=== PATIENT | female | born 1985 | race Two or more races ===

== ENCOUNTER 2020-05-12 18:37 | Emergency (ER) | payer MEDICAID ==
[~2020-05-12] VITALS: Ht 165.1 cm; Wt 63.5 kg
[~2020-05-12 18:37] MED LIST: LEVO500T21 PO
[2020-05-12 18:38] VITALS: BP 124/67
[2020-05-12] MEDS ORDERED: NEOMYCIN-BACITRACIN-POLYM UNITDOSE PKG TOP OINT TOP ONE (19:30)
== END 2020-05-12 19:46 | disposition home or self-care (01) ==
LOC: EDBD 18:37 → ER 18:41
DX: S50.812A Abrasion of left forearm, initial encounter (principal); F10.920 Alcohol use, unspecified with intoxication, uncomplicated; V49.9XXA Car occupant (driver) (passenger) injured in unspecified traffic accident, initial encounter; Y93.89 Activity, other specified; Y92.89 Other specified places as the place of occurrence of the external cause; Y99.8 Other external cause status

== ENCOUNTER 2021-01-11 06:59 | Emergency (ER) | payer MEDICAID ==
[~2021-01-11] VITALS: Ht 160 cm; Wt 59.0 kg
[~2021-01-11 06:59] MED LIST changes: -LEVO500T21 PO; +LEVO500T31 PO
[2021-01-11] MEDS ORDERED: SODIUM CHLORIDE 0.9% 1,000 ML IV ONE ×2 (07:45→08:45)
[2021-01-11 08:03] LABS: Basophils # (auto) 0.1 10 ^3/uL (0-0.2); Eosinophils # (auto) 0 10 ^3/uL (0-0.8); Eosinophils % (auto) 0.1 % (0.0-7.0); Hematocrit 42.9 % (36.0-46.0); Hemoglobin 14.4 g/dL (12.2-16.2); Lymphocytes # (auto) 1.3 10 ^3/uL (0.4-5.4); Mean Corpuscular Hemoglobin 32.9 pg (28.0-32.0); Mean Corpuscular Hgb Conc. 33.6 g/dL (32.0-36.0); Mean Corpuscular Volume 97.9 fL (80.0-100.0); Monocytes # (auto) 0.5 10 ^3/uL (0-1.3); Monocytes % (auto) 8.3 % (0.0-12.0); Neutrophils # (auto) 4.5 10 ^3/uL (1.6-8.6); Neutrophils % (auto) 70.6 % (37.0-80.0); Nucleated Red Blood Cells % 0.1 %; Platelet Count (auto) 134 10^3/uL (140-450); Red Blood Cells 4.38 10^6/uL (4.0-5.20); Red Cell Distribution Width 17.7 % (11.8-14.3); White Blood Cell 6.4 10^3/uL (4.4-10.8)
[2021-01-11 08:10] LABS: Albumin 3.4 g/dL (3.4-5.0); Calcium 8.1 mg/dL (8.5-10.1); Magnesium 1.7 mg/dL (1.6-2.6); Potassium 3.9 mmol/L (3.5-5.1)
[2021-01-11 08:13] LABS: Urine Bacteria FEW /hpf (None Seen); Urine Blood 2+ /uL (Negative); Urine Mucus FEW (None Seen); Urine Specific Gravity 1.021 (1.001-1.035); Urine WBC 40 /hpf (0 - 5)
[2021-01-11 08:14] LABS: BUN/Creatinine Ratio 6.3; Bilirubin, Direct 0.6 mg/dL (0-0.2); Bilirubin, Total 0.9 mg/dL (0.2-1.0); Total Protein 8.4 g/dL (6.4-8.2)
[2021-01-11 08:33] LABS: Amphetamine Screen, Urine NEGATIVE (NEGATIVE); Barbiturate Scree,Urine NEGATIVE (NEGATIVE); Benzodiazephine Screen, Urine POSITIVE (NEGATIVE); Cannabinoid Screen, Urine NEGATIVE (NEGATIVE); Cocaine Screen, Urine NEGATIVE (NEGATIVE); Opiate Scree,Urine NEGATIVE (NEGATIVE); Phencyclidine Screen, Urine NEGATIVE (NEGATIVE)
[2021-01-11] MEDS ORDERED: SODIUM CHLORIDE 0.9% 1,000 ML IVB ONE (08:45)
[2021-01-11] MEDS ORDERED: DONNATAL 5ml ORAL Elix (BELLADONNA ALK-PHENOBARB) PO ONE (08:45)
[2021-01-11] MEDS ORDERED: LORazepam 2MG/ML-1ML VIAL IV ONE ×2 (08:45→13:00)
[2021-01-11] MEDS ORDERED: ONDANSETRON HCL 4 MG/2 ML VIAL IV ONE (08:45)
[2021-01-11] MEDS ORDERED: FAMOTIDINE 20 MG TAB PO ONE (08:45)
[2021-01-11] MEDS ORDERED: ALUM & MAG HYDROX-SIMETH LIQ(MAALOX) 30 ML PO ONE (08:45)
[2021-01-11 09:32] LABS: Beta HCG, Quantitative < 1 mlU/mL (1-3); Thyroid Stimulating Hormone 1.88 uIU/mL (0.358-3.74)
[2021-01-11 10:47] LABS: INR 1.35 (0.9-1.15); Partial Thromboplastin Time 29.5 sec (23.0-31.2)
[2021-01-11] MEDS ORDERED: cefTRIAXone 1GM/50ML D5W 50 ML IV ONE (11:00)
[2021-01-11] MEDS ORDERED: FOLIC ACID 1 MG, MULTIPLE VITAMIN 10 ML, MAGNESIUM SULF SDV 50% 8 MEQ, THIAMINE INJ 100... INJ SCH ×5 (12:00)
[2021-01-11 16:54] VITALS: BP 104/69
== END 2021-01-11 17:47 | disposition home or self-care (01) ==
LOC: ER 06:59
DX: F10.239 Alcohol dependence with withdrawal, unspecified (principal); N39.0 Urinary tract infection, site not specified; F17.210 Nicotine dependence, cigarettes, uncomplicated; F15.10 Other stimulant abuse, uncomplicated; F14.10 Cocaine abuse, uncomplicated; Z98.51 Tubal ligation status; Z32.02 Encounter for pregnancy test, result negative; Y90.8 Blood alcohol level of 240 mg/100 ml or more
CPT/HCPCS: 36415; 80053; 80076; 80307; 81001; 83690; 83735; 84443; 84702; 85025; 85610; 85730; 96361; 96365; 96367; 96375; 96376; 99285; J0696; J2060; J2405; J3411; J3475; J7030

== ENCOUNTER 2021-01-18 18:24 | Emergency (ER) | payer MEDICAID ==
[~2021-01-18] VITALS: Ht 172.7 cm; Wt 68.0 kg
[2021-01-18] MEDS ORDERED: LORazepam 2MG/ML-1ML VIAL IM ONE (18:45)
[2021-01-18] MEDS ORDERED: SODIUM CHLORIDE 0.9% 1,000 ML IV ONE ×2 (18:45→20:30)
[2021-01-18] MEDS ORDERED: diphenhdrAMINE HCL 50 MG/1 ML VL IM ONE (18:45)
[2021-01-18] MEDS ORDERED: THIAMINE INJ 100 MG in SODIUM CHLORIDE 0.9% 1,000 ML IV ONE (18:45)
[2021-01-18] MEDS ORDERED: diphenhdrAMINE HCL 50 MG/1 ML VL IV ONE ×2 (19:00→20:45)
[2021-01-18] MEDS ORDERED: LORazepam 2MG/ML-1ML VIAL IV ONE ×2 (19:00→20:45)
[2021-01-18 19:18] LABS: Basophils # (auto) 0.2 10 ^3/uL (0-0.2); Basophils % (auto) 3.6 % (0.0-2.0); Eosinophils # (auto) 0 10 ^3/uL (0-0.8); Eosinophils % (auto) 0.7 % (0.0-7.0); Hematocrit 39.2 % (36.0-46.0); Hemoglobin 13.5 g/dL (12.2-16.2); Lymphocytes # (auto) 3.1 10 ^3/uL (0.4-5.4); Lymphocytes % (auto) 51.2 % (10.0-50.0); Mean Corpuscular Hemoglobin 33.2 pg (28.0-32.0); Mean Corpuscular Hgb Conc. 34.3 g/dL (32.0-36.0); Mean Corpuscular Volume 96.9 fL (80.0-100.0); Monocytes # (auto) 0.5 10 ^3/uL (0-1.3); Monocytes % (auto) 7.8 % (0.0-12.0); Neutrophils # (auto) 2.2 10 ^3/uL (1.6-8.6); Neutrophils % (auto) 36.7 % (37.0-80.0); Nucleated Red Blood Cells % 0.1 %; Platelet Count (auto) 171 10^3/uL (140-450); Red Blood Cells 4.05 10^6/uL (4.0-5.20); Red Cell Distribution Width 18.7 % (11.8-14.3); White Blood Cell 6.1 10^3/uL (4.4-10.8)
[2021-01-18 19:40] LABS: Salicylate < 1.7 mg/dL (2.8-20.0)
[2021-01-18 19:41] LABS: Albumin 2.8 g/dL (3.4-5.0); Calcium 7.6 mg/dL (8.5-10.1); Potassium 3.2 mmol/L (3.5-5.1)
[2021-01-18 19:46] LABS: BUN/Creatinine Ratio 6.1; Bilirubin, Total 0.8 mg/dL (0.2-1.0); Total Protein 7.5 g/dL (6.4-8.2)
[2021-01-18 20:04] LABS: Acetaminophen < 2.0 ug/mL (10-30)
[2021-01-18] MEDS ORDERED: POTASSIUM CHL 20MEQ/100ML 100 ML IV ONE (20:30)
[2021-01-18 21:16] LABS: Urine Bacteria NONE SEEN /hpf (None Seen); Urine Blood Negative /uL (Negative); Urine Mucus FEW (None Seen); Urine WBC 1 /hpf (0 - 5)
[2021-01-18 21:29] LABS: Amphetamine Screen, Urine NEGATIVE (NEGATIVE); Barbiturate Scree,Urine NEGATIVE (NEGATIVE); Benzodiazephine Screen, Urine POSITIVE (NEGATIVE); Cannabinoid Screen, Urine NEGATIVE (NEGATIVE); Cocaine Screen, Urine NEGATIVE (NEGATIVE); Opiate Scree,Urine NEGATIVE (NEGATIVE)
[2021-01-18 21:38] LABS: Phencyclidine Screen, Urine NEGATIVE (NEGATIVE)
[2021-01-19] MEDS ORDERED: SODIUM CHLORIDE 0.9% 1,000 ML IV ONE (00:15)
[2021-01-19 05:00] VITALS: BP 105/71
== END 2021-01-19 05:15 | disposition home or self-care (01) ==
LOC: EDBD 18:24 → ER 18:28
DX: G92 Toxic encephalopathy (principal); F10.129 Alcohol abuse with intoxication, unspecified; K70.30 Alcoholic cirrhosis of liver without ascites; F19.10 Other psychoactive substance abuse, uncomplicated; F41.9 Anxiety disorder, unspecified; F32.9 Major depressive disorder, single episode, unspecified; F17.210 Nicotine dependence, cigarettes, uncomplicated; R00.0 Tachycardia, unspecified; Y90.8 Blood alcohol level of 240 mg/100 ml or more; Z98.890 Other specified postprocedural states
CPT/HCPCS: 36415; 51702; 80053; 80307; 80320; 80329; 81001; 81025; 83735; 85025; 96361; 96365; 96375; 96376; 99285; J1200; J2060; J3411; J3480; J7030

== ENCOUNTER 2021-02-19 11:29 | Emergency (ER) | payer MEDICAID ==
[~2021-02-19] VITALS: Ht 172.7 cm; Wt 63.5 kg
[2021-02-19 12:23] LABS: Basophils # (auto) 0.1 10 ^3/uL (0-0.2); Basophils % (auto) 0.7 % (0.0-2.0); Eosinophils # (auto) 0 10 ^3/uL (0-0.8); Hematocrit 39.9 % (36.0-46.0); Hemoglobin 13.8 g/dL (12.2-16.2); Lymphocytes # (auto) 1.6 10 ^3/uL (0.4-5.4); Lymphocytes % (auto) 13.7 % (10.0-50.0); Mean Corpuscular Hgb Conc. 34.5 g/dL (32.0-36.0); Mean Corpuscular Volume 95.6 fL (80.0-100.0); Monocytes # (auto) 0.4 10 ^3/uL (0-1.3); Monocytes % (auto) 3.6 % (0.0-12.0); Neutrophils # (auto) 9.9 10 ^3/uL (1.6-8.6); Nucleated Red Blood Cells % 0.1 %; Platelet Count (auto) 168 10^3/uL (140-450); Red Blood Cells 4.17 10^6/uL (4.0-5.20); Red Cell Distribution Width 17.3 % (11.8-14.3)
[2021-02-19 12:36] LABS: Albumin 3.6 g/dL (3.4-5.0); Calcium 8.4 mg/dL (8.5-10.1); Potassium 4.1 mmol/L (3.5-5.1)
[2021-02-19 12:41] LABS: BUN/Creatinine Ratio 11.1; Bilirubin, Total 1.4 mg/dL (0.2-1.0); Total Protein 9.1 g/dL (6.4-8.2)
[2021-02-19] MEDS ORDERED: FOLIC ACID 1 MG, MULTIPLE VITAMIN 10 ML, MAGNESIUM SULF SDV 50% 8 MEQ, THIAMINE INJ 100... INJ ONE ×5 (16:45)
[2021-02-19] MEDS ORDERED: SODIUM CHLORIDE 0.9% 1,000 ML IVB ONE (16:45)
[2021-02-19] MEDS ORDERED: LORazepam 2MG/ML-1ML VIAL IV ONE (16:45)
[2021-02-19 17:00] LABS: Basophils # (auto) 0 10 ^3/uL (0-0.2); Basophils % (auto) 0.4 % (0.0-2.0); Eosinophils # (auto) 0 10 ^3/uL (0-0.8); Hemoglobin 13.3 g/dL (12.2-16.2); Lymphocytes # (auto) 0.7 10 ^3/uL (0.4-5.4); Lymphocytes % (auto) 7.5 % (10.0-50.0); Mean Corpuscular Hemoglobin 33.4 pg (28.0-32.0); Mean Corpuscular Hgb Conc. 34.9 g/dL (32.0-36.0); Mean Corpuscular Volume 95.7 fL (80.0-100.0); Monocytes # (auto) 0.6 10 ^3/uL (0-1.3); Monocytes % (auto) 5.7 % (0.0-12.0); Neutrophils # (auto) 8.5 10 ^3/uL (1.6-8.6); Neutrophils % (auto) 86.4 % (37.0-80.0); Nucleated Red Blood Cells % 0.1 %; Platelet Count (auto) 140 10^3/uL (140-450); Red Blood Cells 3.97 10^6/uL (4.0-5.20); Red Cell Distribution Width 17.4 % (11.8-14.3); White Blood Cell 9.8 10^3/uL (4.4-10.8)
[2021-02-19 17:18] LABS: INR 1.03 (0.9-1.15); Partial Thromboplastin Time 26.9 sec (23.0-31.2)
[2021-02-19 17:39] LABS: Albumin 3.7 g/dL (3.4-5.0); BUN/Creatinine Ratio 12.5; Calcium 8.2 mg/dL (8.5-10.1); Magnesium 1.4 mg/dL (1.6-2.6); Potassium 3.9 mmol/L (3.5-5.1)
[2021-02-19 17:42] LABS: Bilirubin, Total 2.2 mg/dL (0.2-1.0)
[2021-02-19 22:56] LABS: Urine Bacteria FEW /hpf (None Seen); Urine Blood 2+ /uL (Negative); Urine Mucus FEW (None Seen); Urine Specific Gravity 1.017 (1.001-1.035); Urine WBC 141 /hpf (0 - 5)
[2021-02-19 23:06] LABS: Alcohol, Urine < 3.0 mg/dL (0-10); Amphetamine Screen, Urine NEGATIVE (NEGATIVE); Barbiturate Scree,Urine NEGATIVE (NEGATIVE); Benzodiazephine Screen, Urine NEGATIVE (NEGATIVE); Cannabinoid Screen, Urine NEGATIVE (NEGATIVE); Cocaine Screen, Urine NEGATIVE (NEGATIVE); Opiate Scree,Urine NEGATIVE (NEGATIVE); Phencyclidine Screen, Urine NEGATIVE (NEGATIVE)
[2021-02-20 01:04] VITALS: BP 126/83
[2021-02-20] MEDS ORDERED: FOLIC ACID 1 MG, MULTIPLE VITAMIN 10 ML, MAGNESIUM SULF SDV 50% 8 MEQ, THIAMINE INJ 100... INJ SCH ×5 (12:00)
== END 2021-02-20 00:58 | disposition home or self-care (01) ==
LOC: ER 11:29 → EDBD 11:29 → ER 02-20 00:58
DX: F10.239 Alcohol dependence with withdrawal, unspecified (principal); K70.30 Alcoholic cirrhosis of liver without ascites; D69.6 Thrombocytopenia, unspecified; E83.42 Hypomagnesemia; R74.8 Abnormal levels of other serum enzymes
CPT/HCPCS: 36415; 80053; 80307; 80320; 81001; 82140; 83690; 83735; 85025; 85610; 85730; 93005; 96365; 96375; 99285; J2060; J3411; J3475; J7030

== ENCOUNTER 2021-02-21 02:29 | Emergency (ER) | payer MEDICAID ==
[~2021-02-21] VITALS: Ht 165.1 cm; Wt 56.7 kg
[2021-02-21] MEDS ORDERED: LORazepam 0.5 MG TAB PO ONE (06:15)
[2021-02-21 06:33] LABS: Amphetamine Screen, Urine NEGATIVE (NEGATIVE); Barbiturate Scree,Urine NEGATIVE (NEGATIVE); Benzodiazephine Screen, Urine NEGATIVE (NEGATIVE); Cannabinoid Screen, Urine NEGATIVE (NEGATIVE); Cocaine Screen, Urine NEGATIVE (NEGATIVE); Opiate Scree,Urine NEGATIVE (NEGATIVE); Phencyclidine Screen, Urine NEGATIVE (NEGATIVE)
[2021-02-21 07:33] VITALS: BP 130/95
== END 2021-02-21 07:29 | disposition short-term general hospital (02) ==
LOC: EDBD 02:29 → ER 02:29
DX: T74.21XA Adult sexual abuse, confirmed, initial encounter (principal); R10.2 Pelvic and perineal pain; Z79.2 Long term (current) use of antibiotics
CPT/HCPCS: 80307

== ENCOUNTER 2021-04-12 06:36 | Emergency (ER) | payer MEDICAID ==
[~2021-04-12] VITALS: Ht 160 cm; Wt 59.0 kg
[2021-04-12 06:36] VITALS: BP 120/88
== END 2021-04-12 13:03 | disposition home or self-care (01) ==
LOC: ER 06:36 → EDBD 06:36 → ER 13:03
DX: S09.90XA Unspecified injury of head, initial encounter (principal); M25.512 Pain in left shoulder; Z79.2 Long term (current) use of antibiotics; Y04.2XXA Assault by strike against or bumped into by another person, initial encounter; Y93.89 Activity, other specified; Y92.89 Other specified places as the place of occurrence of the external cause; Y99.8 Other external cause status
CPT/HCPCS: 70450; 70486; 73030; 73090; 81025

== ENCOUNTER 2021-04-13 04:55 | Emergency (ER) | payer MEDICAID ==
[~2021-04-13] VITALS: Ht 160 cm; Wt 59.0 kg
[2021-04-13 07:54] VITALS: BP 93/66
[2021-04-13] MEDS ORDERED: ONDANSETRON ODT 4 MG TAB PO ONE (08:15)
[2021-04-13] MEDS ORDERED: HYDROcodone-ACET 5/325MG TAB PO ONE (08:15)
== END 2021-04-13 10:25 | disposition home or self-care (01) ==
LOC: ER 04:55
DX: S02.2XXA Fracture of nasal bones, initial encounter for closed fracture (principal); S46.912A Strain of unspecified muscle, fascia and tendon at shoulder and upper arm level, left arm, initial encounter; S20.212A Contusion of left front wall of thorax, initial encounter; Z98.51 Tubal ligation status; Y04.2XXA Assault by strike against or bumped into by another person, initial encounter; Y93.89 Activity, other specified; Y92.89 Other specified places as the place of occurrence of the external cause; Y99.8 Other external cause status
CPT/HCPCS: 71250; 99284; Q0162

== ENCOUNTER 2021-05-16 13:43 | Inpatient (IN) | payer MEDICAID ==
[~2021-05-16] VITALS: Ht 160 cm; Wt 56.3 kg
[2021-05-16 14:09] LABS: Basophils # (auto) 0.1 10 ^3/uL (0-0.2); Eosinophils # (auto) 0 10 ^3/uL (0-0.8); Monocytes # (auto) 1.1 10 ^3/uL (0-1.3)
[2021-05-16 14:12] LABS: Basophils % (auto) 0.4 % (0.0-2.0); Hematocrit 40.8 % (36.0-46.0); Hemoglobin 13.6 g/dL (12.2-16.2); Lymphocytes # (auto) 2.2 10 ^3/uL (0.4-5.4); Lymphocytes % (auto) 9.8 % (10.0-50.0); Mean Corpuscular Hemoglobin 36.3 pg (28.0-32.0); Mean Corpuscular Hgb Conc. 33.3 g/dL (32.0-36.0); Neutrophils % (auto) 84.8 % (37.0-80.0); Nucleated Red Blood Cells % 0.1 %; Red Blood Cells 3.74 10^6/uL (4.0-5.20); Red Cell Distribution Width 19.2 % (11.8-14.3); White Blood Cell 22.4 10^3/uL (4.4-10.8)
[2021-05-16] MEDS ORDERED: MORPHINE SULFATE INJECTION 2 MG/ML SYRG IV ONE (15:00)
[2021-05-16] MEDS ORDERED: ONDANSETRON HCL 4 MG/2 ML VIAL IV ONE (15:00)
[2021-05-16 15:03] LABS: Alanine Aminotransferase 33 U/L (13-56); Albumin 2.8 g/dL (3.4-5.0); Amylase 119 U/L (25-115); Anion Gap 25 (5-15); Blood Urea Nitrogen 18 mg/dL (7-18); Calcium 8.3 mg/dL (8.5-10.1); Carbon Dioxide 16 mmol/L (21-32); Chloride 85 mmol/L (98-107); Glucose 63 mg/dL (74-106); Lipase 578 U/L (73-393); Magnesium 1.4 mg/dL (1.6-2.6); Potassium 3.7 mmol/L (3.5-5.1); Sodium 126 mmol/L (136-145)
[2021-05-16 15:21] LABS: Alkaline Phosphatase 253 U/L (45-117); Aspartate Aminotransferase 163 U/L (15-37); BUN/Creatinine Ratio 6.7; GFR African American 26 mL/min; GFR Non-African American 21 mL/min
[2021-05-16 15:22] LABS: Bilirubin, Total 10.2 mg/dL (0.2-1.0); Total Protein 8.2 g/dL (6.4-8.2)
[2021-05-16 15:35] LABS: Urine Bacteria FEW /hpf (None Seen); Urine Blood 2+ /uL (Negative); Urine Hyaline Cast MANY /lpf (0 - 2); Urine Specific Gravity 1.024 (1.001-1.035); Urine WBC 394 /hpf (0 - 5)
[2021-05-16] MEDS ORDERED: cefTRIAXone 1GM/50ML D5W 50 ML IV ONE (17:30)
[2021-05-16] MEDS ORDERED: MORPHINE SULFATE INJECTION 2 MG/ML SYRG IV PRN (17:45)
[2021-05-16] MEDS ORDERED: ACETAMINOPHEN 325 MG TAB PO PRN (17:45)
[2021-05-16] MEDS ORDERED: NITROGLYCERIN 0.4 MG SL TAB SL PRN (17:45)
[2021-05-16] MEDS: SODIUM CHLORIDE 0.9% 1,000 ML IV SCH (18:00)
[2021-05-16 18:28] LABS: Lactic Acid w/Reflex 7.5 mmol/L (0.4-2.0)
[2021-05-16] MEDS ORDERED: VANCOMYCIN 1GM/250ML 250 ML IV ONE (18:45)
[2021-05-16] MEDS ORDERED: SODIUM CHLORIDE 0.9% 1,000 ML IV ONE (18:45)
[2021-05-16 19:31] LABS: Amphetamine Screen, Urine NEGATIVE (NEGATIVE); Barbiturate Scree,Urine NEGATIVE (NEGATIVE); Benzodiazephine Screen, Urine NEGATIVE (NEGATIVE); Cannabinoid Screen, Urine NEGATIVE (NEGATIVE); Cocaine Screen, Urine NEGATIVE (NEGATIVE); Opiate Scree,Urine NEGATIVE (NEGATIVE); Phencyclidine Screen, Urine NEGATIVE (NEGATIVE)
[2021-05-16 21:30] VITALS: BP 119/81
[2021-05-16 22:00] VITALS: BP 119/81
[2021-05-16] MEDS: ASCORBIC ACID 500 MG TAB PO SCH (22:34)
[2021-05-16] MEDS: TEMAZEPAM 15 MG CAP PO PRN (22:46)
[2021-05-16] MEDS: MORPHINE SULFATE INJECTION 2 MG/ML SYRG IV PRN (23:11)
[2021-05-17] MEDS: LACTULOSE 20Gm/30ML SOLN PO SCH ×5 (04:00→23:45)
[2021-05-17 05:00] VITALS: BP 129/88
[2021-05-17 06:23] LABS: Eosinophils # (auto) 0.1 10 ^3/uL (0-0.8); Eosinophils % (auto) 0.4 % (0.0-7.0); Nucleated Red Blood Cells % 0.1 %
[2021-05-17 06:25] LABS: Basophils # (auto) 0 10 ^3/uL (0-0.2); Basophils % (auto) 0.2 % (0.0-2.0); Hematocrit 33.3 % (36.0-46.0); Hemoglobin 11.3 g/dL (12.2-16.2); Lymphocytes # (auto) 1.9 10 ^3/uL (0.4-5.4); Lymphocytes % (auto) 9.8 % (10.0-50.0); Mean Corpuscular Hemoglobin 36.8 pg (28.0-32.0); Mean Corpuscular Volume 108.1 fL (80.0-100.0); Monocytes # (auto) 0.9 10 ^3/uL (0-1.3); Monocytes % (auto) 4.8 % (0.0-12.0); Neutrophils # (auto) 16.7 10 ^3/uL (1.6-8.6); Neutrophils % (auto) 84.8 % (37.0-80.0); Red Blood Cells 3.08 10^6/uL (4.0-5.20); Red Cell Distribution Width 18.4 % (11.8-14.3); White Blood Cell 19.7 10^3/uL (4.4-10.8)
[2021-05-17 06:36] LABS: Albumin 2.1 g/dL (3.4-5.0); Calcium 6.8 mg/dL (8.5-10.1)
[2021-05-17 06:38] LABS: Lactic Acid w/Reflex 3.9 mmol/L (0.4-2.0)
[2021-05-17 06:42] LABS: BUN/Creatinine Ratio 13.4; Bilirubin, Total 9.4 mg/dL (0.2-1.0); Total Protein 6.4 g/dL (6.4-8.2)
[2021-05-17 06:57] LABS: Potassium 2.9 mmol/L (3.5-5.1)
[2021-05-17] MEDS ORDERED: POTASSIUM CHL 20 Meq TABLET PO ONE (07:00)
[2021-05-17] MEDS: ENOXAPARIN SOD 30 MG/0.3 ML SYRINGE SC SCH (08:49)
[2021-05-17] MEDS: ASCORBIC ACID 500 MG TAB PO SCH (08:49)
[2021-05-17] MEDS: ONDANSETRON HCL 4 MG/2 ML VIAL IV PRN ×2 (08:56→14:16)
[2021-05-17 09:00] VITALS: BP 130/99
[2021-05-17] MEDS: MORPHINE SULFATE INJECTION 2 MG/ML SYRG IV PRN ×2 (09:07→14:16)
[2021-05-17] MEDS ORDERED: ZINC SULFATE 220mg CAP or TAB PO SCH (10:00)
[2021-05-17 13:00] VITALS: BP 132/92
[2021-05-17] MEDS: SODIUM CHLORIDE 0.9% 1,000 ML IV SCH (13:13)
[2021-05-17] MEDS ORDERED: ACETAMINOPHEN 500 MG TAB PO PRN (15:00)
[2021-05-17] MEDS ORDERED: VANCOMYCIN PER PHARMACY 0 MG IV SCH (15:00)
[2021-05-17] MEDS ORDERED: cefTRIAXone 1GM/50ML D5W 50 ML IV ONE (15:00)
[2021-05-17 16:00] VITALS: BP 136/93
[2021-05-17] MEDS ORDERED: VANCOMYCIN 1GM/250ML 250 ML IV ONE (19:00)
[2021-05-17] MEDS: PANTOPRAZOLE 40 MG/10 ML VIAL INJ IV SCH (21:27)
[2021-05-17] MEDS: POTASSIUM EFFERVESENT TAB 25 MEQ PO SCH (21:28)
[2021-05-17] MEDS: GABAPENTIN 100 MG CAP PO SCH (21:28)
[2021-05-17 22:00] VITALS: BP 129/106
[2021-05-18] MEDS: TEMAZEPAM 15 MG CAP PO PRN (01:30)
[2021-05-18] MEDS: SODIUM CHLORIDE 0.9% 1,000 ML IV SCH ×2 (04:58→19:49)
[2021-05-18 05:00] VITALS: BP 130/86
[2021-05-18] MEDS: GABAPENTIN 100 MG CAP PO SCH ×3 (05:53→21:42)
[2021-05-18] MEDS: LACTULOSE 20Gm/30ML SOLN PO SCH ×4 (05:53→23:30)
[2021-05-18 06:11] LABS: Basophils # (auto) 0.1 10 ^3/uL (0-0.2); Basophils % (auto) 0.4 % (0.0-2.0); Eosinophils # (auto) 0.1 10 ^3/uL (0-0.8); Eosinophils % (auto) 0.6 % (0.0-7.0); Hematocrit 35.5 % (36.0-46.0); Lymphocytes % (auto) 13.2 % (10.0-50.0); Mean Corpuscular Hemoglobin 36.5 pg (28.0-32.0); Mean Corpuscular Hgb Conc. 33.9 g/dL (32.0-36.0); Mean Corpuscular Volume 107.6 fL (80.0-100.0); Monocytes % (auto) 6.5 % (0.0-12.0); Neutrophils % (auto) 79.3 % (37.0-80.0); Nucleated Red Blood Cells % 0.1 %; Red Cell Distribution Width 18.5 % (11.8-14.3); White Blood Cell 15.1 10^3/uL (4.4-10.8)
[2021-05-18 06:24] LABS: INR 1.88 (0.9-1.15)
[2021-05-18 06:38] LABS: Albumin 2.2 g/dL (3.4-5.0); Calcium 7.5 mg/dL (8.5-10.1); Potassium 3.3 mmol/L (3.5-5.1)
[2021-05-18 06:42] LABS: BUN/Creatinine Ratio 14.6; Total Protein 6.5 g/dL (6.4-8.2)
[2021-05-18 08:00] VITALS: BP 132/94
[2021-05-18] MEDS: POTASSIUM EFFERVESENT TAB 25 MEQ PO SCH ×2 (09:09→21:42)
[2021-05-18] MEDS: PANTOPRAZOLE 40 MG/10 ML VIAL INJ IV SCH ×2 (09:10→21:42)
[2021-05-18] MEDS: ENOXAPARIN SOD 30 MG/0.3 ML SYRINGE SC SCH (09:10)
[2021-05-18] MEDS ORDERED: PANTOPRAZOLE 40 MG/10 ML VIAL INJ IV SCH (10:00)
[2021-05-18] MEDS: VANCOMYCIN 750mg/250ml 250 ML IV SCH ×2 (10:13→21:49)
[2021-05-18] MEDS: MORPHINE SULFATE INJECTION 2 MG/ML SYRG IV PRN ×2 (10:14→19:50)
[2021-05-18] MEDS: PROMETHAZINE HCL 25 MG/ML 1ML IV PRN ×2 (10:14→19:50)
[2021-05-18 12:00] VITALS: BP 135/96
[2021-05-18] MEDS ORDERED: POTASSIUM EFFERVESENT TAB 25 MEQ PO ONE (12:00)
[2021-05-18 16:00] VITALS: BP 134/86
[2021-05-18 22:00] VITALS: BP 119/71
[2021-05-19 05:00] VITALS: BP 111/85
[2021-05-19] MEDS: LACTULOSE 20Gm/30ML SOLN PO SCH ×3 (05:32→18:05)
[2021-05-19] MEDS: GABAPENTIN 100 MG CAP PO SCH ×3 (05:32→22:41)
[2021-05-19 07:21] LABS: Basophils # (auto) 0.1 10 ^3/uL (0-0.2); Eosinophils # (auto) 0.1 10 ^3/uL (0-0.8); Hemoglobin 11.1 g/dL (12.2-16.2); Lymphocytes # (auto) 1.5 10 ^3/uL (0.4-5.4); Neutrophils # (auto) 10.5 10 ^3/uL (1.6-8.6)
[2021-05-19 07:26] LABS: Basophils % (auto) 0.4 % (0.0-2.0); Eosinophils % (auto) 0.7 % (0.0-7.0); Hematocrit 32.5 % (36.0-46.0); Mean Corpuscular Hgb Conc. 34.1 g/dL (32.0-36.0); Mean Corpuscular Volume 108.6 fL (80.0-100.0); Monocytes # (auto) 1.5 10 ^3/uL (0-1.3); Monocytes % (auto) 10.8 % (0.0-12.0); Neutrophils % (auto) 77.1 % (37.0-80.0); Nucleated Red Blood Cells % 0.3 %; Red Blood Cells 2.99 10^6/uL (4.0-5.20); White Blood Cell 13.6 10^3/uL (4.4-10.8)
[2021-05-19 07:28] LABS: INR 1.64 (0.9-1.15)
[2021-05-19 07:30] LABS: BUN/Creatinine Ratio 6.2; Calcium 7.3 mg/dL (8.5-10.1); Potassium 3.5 mmol/L (3.5-5.1)
[2021-05-19 07:33] LABS: Bilirubin, Total 9.2 mg/dL (0.2-1.0); Total Protein 6.3 g/dL (6.4-8.2)
[2021-05-19] MEDS: PANTOPRAZOLE 40 MG/10 ML VIAL INJ IV SCH ×2 (08:53→22:41)
[2021-05-19] MEDS: VANCOMYCIN 750mg/250ml 250 ML IV SCH ×2 (08:54→22:41)
[2021-05-19] MEDS: ENOXAPARIN SOD 30 MG/0.3 ML SYRINGE SC SCH (08:54)
[2021-05-19] MEDS: POTASSIUM EFFERVESENT TAB 25 MEQ PO SCH ×2 (08:54→22:41)
[2021-05-19] MEDS: MORPHINE SULFATE INJECTION 2 MG/ML SYRG IV PRN ×2 (08:55→20:09)
[2021-05-19 09:00] VITALS: BP 124/78
[2021-05-19 10:08] LABS: Hepatitis B Surface Antibody Negative
[2021-05-19 10:44] LABS: Hepatitis A Total Antibody Negative
[2021-05-19] MEDS: SODIUM CHLORIDE 0.9% 1,000 ML IV SCH (12:25)
[2021-05-19 13:56] LABS: Hepatitis B Core Total AB Negative; Hepatitis B Surface Antigen Negative (Negative); Hepatitis C Antibody Negative (Negative)
[2021-05-19 15:50] VITALS: BP 139/102
[2021-05-19 17:28] VITALS: BP 127/95
[2021-05-19] MEDS ORDERED: TPN PER PHARMACY IV NR ×8 (20:00)
[2021-05-19] MEDS: ONDANSETRON HCL 4 MG/2 ML VIAL IV PRN (20:10)
[2021-05-19 21:47] VITALS: BP 100/69
[2021-05-20] MEDS: LACTULOSE 20Gm/30ML SOLN PO SCH ×5 (00:15→23:44)
[2021-05-20] MEDS: MORPHINE SULFATE INJECTION 2 MG/ML SYRG IV PRN ×4 (05:23→20:19)
[2021-05-20] MEDS: GABAPENTIN 100 MG CAP PO SCH ×3 (05:23→22:38)
[2021-05-20] MEDS: SODIUM CHLORIDE 0.9% 1,000 ML IV SCH ×2 (05:34→21:45)
[2021-05-20 05:55] VITALS: BP 135/91
[2021-05-20 07:00] LABS: Albumin 2.1 g/dL (3.4-5.0); Bilirubin, Total 9.1 mg/dL (0.2-1.0); Total Protein 6.3 g/dL (6.4-8.2)
[2021-05-20 09:00] VITALS: BP 104/81
[2021-05-20] MEDS: VANCOMYCIN 750mg/250ml 250 ML IV SCH (10:31)
[2021-05-20] MEDS: ENOXAPARIN SOD 30 MG/0.3 ML SYRINGE SC SCH (10:32)
[2021-05-20] MEDS: ONDANSETRON HCL 4 MG/2 ML VIAL IV PRN ×3 (10:32→20:19)
[2021-05-20] MEDS: POTASSIUM EFFERVESENT TAB 25 MEQ PO SCH ×2 (10:32→22:38)
[2021-05-20] MEDS: PANTOPRAZOLE 40 MG/10 ML VIAL INJ IV SCH ×2 (10:33→22:37)
[2021-05-20] MEDS: NAFCILLIN SOD 1GM 1 GM in SODIUM CHL 0.9% 50 ML IV SCH ×4 (10:49→22:37)
[2021-05-20 13:00] VITALS: BP 125/95
[2021-05-20 17:00] VITALS: BP 130/90
[2021-05-20 22:19] VITALS: BP 118/80
[2021-05-20] MEDS: VANCOMYCIN 1GM/250ML 250 ML IV SCH (22:37)
[2021-05-21] MEDS: NAFCILLIN SOD 1GM 1 GM in SODIUM CHL 0.9% 50 ML IV SCH ×6 (02:03→22:00)
[2021-05-21] MEDS: MORPHINE SULFATE INJECTION 2 MG/ML SYRG IV PRN ×2 (03:49→09:26)
[2021-05-21 05:00] VITALS: BP 116/75
[2021-05-21] MEDS: GABAPENTIN 100 MG CAP PO SCH ×3 (07:04→23:01)
[2021-05-21] MEDS: LACTULOSE 20Gm/30ML SOLN PO SCH ×3 (07:04→18:00)
[2021-05-21] MEDS: ONDANSETRON HCL 4 MG/2 ML VIAL IV PRN (07:19)
[2021-05-21 09:00] VITALS: BP 108/71
[2021-05-21] MEDS: VANCOMYCIN 1GM/250ML 250 ML IV SCH ×2 (09:25→22:00)
[2021-05-21] MEDS: PANTOPRAZOLE 40 MG/10 ML VIAL INJ IV SCH ×2 (09:25→23:00)
[2021-05-21] MEDS: ENOXAPARIN SOD 30 MG/0.3 ML SYRINGE SC SCH (09:26)
[2021-05-21] MEDS: POTASSIUM EFFERVESENT TAB 25 MEQ PO SCH ×2 (09:26→23:00)
[2021-05-21 12:53] VITALS: BP 105/74
[2021-05-21] MEDS ORDERED: FAMO20TA10 PO (13:42)
[2021-05-21] MEDS ORDERED: LACT10SO70 PO (13:42)
[2021-05-21] MEDS ORDERED: GABA300C10 PO (13:42)
[2021-05-21] MEDS ORDERED: AMOX500T86 PO (13:42)
[2021-05-21] MEDS: SODIUM CHLORIDE 0.9% 1,000 ML IV SCH (14:25)
[2021-05-21 17:00] VITALS: BP 133/50
[2021-05-21 22:47] VITALS: BP 111/76
[2021-05-21 23:06] VITALS: BP 111/76
[2021-05-22] MEDS: LACTULOSE 20Gm/30ML SOLN PO SCH
== END 2021-05-22 01:23 | disposition home or self-care (01) | DRG 720 ==
LOC: ER 13:43 → OVERFLOW 17:41 → CENTRAL 21:30
PROVIDERS: ADMIT Emergency Medicine; ATTEND Hospitalist
DX: A41.9 Sepsis, unspecified organism (principal); N17.0 Acute kidney failure with tubular necrosis; E87.1 Hypo-osmolality and hyponatremia; K70.30 Alcoholic cirrhosis of liver without ascites; F10.20 Alcohol dependence, uncomplicated; Y90.0 Blood alcohol level of less than 20 mg/100 ml; N39.0 Urinary tract infection, site not specified; K21.9 Gastro-esophageal reflux disease without esophagitis; Z20.822 Contact with and (suspected) exposure to COVID-19; S00.83XA Contusion of other part of head, initial encounter; Z98.82 Breast implant status; Z98.51 Tubal ligation status; K70.10 Alcoholic hepatitis without ascites
CPT/HCPCS: 36415; 70450; 71045; 74176; 76705; 80053; 80076; 80202; 80307; 80320; 81001; 82140; 82150; 83605; 83690; 83735; 84484; 85025; 85610; 86704; 86706; 86708; 86803; 87040; 87077; 87086; 87186; 87205; 87340; 87426; 93005; 93306; 96365; 96366; 96367; 96375; C9113; G0378; J0696; J2405

== ENCOUNTER 2021-05-24 00:31 | Inpatient (IN) | payer MEDICAID ==
[~2021-05-24] VITALS: Ht 162.6 cm; Wt 58.0 kg
[~2021-05-24 00:31] MED LIST changes: +AMOX500T86 PO; +FAMO20TA10 PO; +GABA300C10 PO; +LACT10SO70 PO; -LEVO500T31 PO
[2021-05-24 02:16] LABS: Hemoglobin 10.5 g/dL (12.2-16.2)
[2021-05-24 02:18] LABS: Hematocrit 30.8 % (36.0-46.0); Mean Corpuscular Hgb Conc. 34.1 g/dL (32.0-36.0); Mean Corpuscular Volume 111.5 fL (80.0-100.0); Red Blood Cells 2.76 10^6/uL (4.0-5.20)
[2021-05-24 02:21] LABS: Red Cell Distribution Width 20.6 % (11.8-14.3)
[2021-05-24 02:22] LABS: Calcium 7.3 mg/dL (8.5-10.1); Potassium 3.3 mmol/L (3.5-5.1); White Blood Cell 31.7 10^3/uL (4.4-10.8)
[2021-05-24 02:23] LABS: Basophils % (manual) 0 (0.0-2.0); Blast Cells 0; Eosinophils % (manual) 0 (0-7); Metamyelocytes % 0; Myelocytes % 0; Promyelocytes % 0; Reactive Lymphocytes 0
[2021-05-24 02:24] LABS: BUN/Creatinine Ratio 3.7
[2021-05-24 02:27] LABS: Bilirubin, Total 13.8 mg/dL (0.2-1.0); Total Protein 6.5 g/dL (6.4-8.2)
[2021-05-24 02:56] LABS: Lactic Acid w/Reflex 4.1 mmol/L (0.4-2.0)
[2021-05-24 05:26] LABS: Band Neutrophils % (manual) 9; Lymphocytes % (manual) 1 (10.0-50.0); Monocytes % (manual) 7 (0-12)
[2021-05-24] MEDS ORDERED: VANCOMYCIN 1GM/250ML 250 ML IV ONE (05:30)
[2021-05-24] MEDS ORDERED: PIPERACILLIN-TAZOB 3.375GM 100 ML IV ONE (05:30)
[2021-05-24 08:02] LABS: Urine Bacteria NONE SEEN /hpf (None Seen); Urine Blood Negative /uL (Negative); Urine Specific Gravity 1.004 (1.001-1.035); Urine WBC 1 /hpf (0 - 5)
[2021-05-24 08:06] LABS: Alcohol, Urine < 3.0 mg/dL (0-10); Amphetamine Screen, Urine NEGATIVE (NEGATIVE); Barbiturate Scree,Urine NEGATIVE (NEGATIVE); Benzodiazephine Screen, Urine NEGATIVE (NEGATIVE); Cannabinoid Screen, Urine NEGATIVE (NEGATIVE); Cocaine Screen, Urine NEGATIVE (NEGATIVE); Opiate Scree,Urine NEGATIVE (NEGATIVE); Phencyclidine Screen, Urine NEGATIVE (NEGATIVE)
[2021-05-24] MEDS ORDERED: ONDANSETRON HCL 4 MG/2 ML VIAL IV ONE (09:00)
[2021-05-24] MEDS ORDERED: MORPHINE SULFATE INJECTION 2 MG/ML SYRG IV ONE (09:00)
[2021-05-24] MEDS ORDERED: MORPHINE SULFATE INJECTION 2 MG/ML SYRG IV PRN (13:45)
[2021-05-24] MEDS ORDERED: ACETAMINOPHEN 325 MG TAB PO PRN (13:45)
[2021-05-24] MEDS ORDERED: metroNIDAZOLE 500MG/100ML 100 ML IV ONE (13:45)
[2021-05-24] MEDS ORDERED: NITROGLYCERIN 0.4 MG SL TAB SL PRN (13:45)
[2021-05-24] MEDS ORDERED: VANCOMYCIN PER PHARMACY 0 MG IV SCH (13:45)
[2021-05-24] MEDS: ONDANSETRON HCL 4 MG/2 ML VIAL IV PRN (13:58)
[2021-05-24] MEDS: MORPHINE SULFATE INJECTION 2 MG/ML SYRG IV PRN ×3 (13:58→23:21)
[2021-05-24] MEDS: SODIUM CHLORIDE 0.9% 1,000 ML IV SCH ×2 (14:09→22:13)
[2021-05-24 16:53] VITALS: BP 102/70
[2021-05-24] MEDS: PIPERACILLIN-TAZOB 3.375GM 100 ML IV SCH (18:16)
[2021-05-24 18:24] LABS: Red Blood Cells 2.54 10^6/uL (4.0-5.20)
[2021-05-24 18:25] LABS: Hematocrit 28.3 % (36.0-46.0); Hemoglobin 9.2 g/dL (12.2-16.2); Mean Corpuscular Hemoglobin 36.3 pg (28.0-32.0); Mean Corpuscular Hgb Conc. 32.7 g/dL (32.0-36.0); Mean Corpuscular Volume 111.1 fL (80.0-100.0); White Blood Cell 25.7 10^3/uL (4.4-10.8)
[2021-05-24 18:27] LABS: Red Cell Distribution Width 20.2 % (11.8-14.3)
[2021-05-24 18:29] LABS: Basophils % (manual) 0 (0.0-2.0); Blast Cells 0; Metamyelocytes % 0; Myelocytes % 0; Promyelocytes % 0; Reactive Lymphocytes 0
[2021-05-24 18:38] LABS: BUN/Creatinine Ratio 3.1; Calcium 6.8 mg/dL (8.5-10.1); Potassium 3.3 mmol/L (3.5-5.1)
[2021-05-24 20:31] LABS: Band Neutrophils % (manual) 3; Eosinophils % (manual) 1 (0-7); Lymphocytes % (manual) 6 (10.0-50.0); Monocytes % (manual) 5 (0-12)
[2021-05-24 22:00] VITALS: BP 107/74
[2021-05-25] MEDS: VANCOMYCIN 750mg/250ml 250 ML IV SCH ×3 (00:11→23:44)
[2021-05-25] MEDS: PIPERACILLIN-TAZOB 3.375GM 100 ML IV SCH ×4 (01:30→17:54)
[2021-05-25] MEDS: diphenhdrAMINE HCL 25 MG CAP PO PRN ×2 (02:55→17:54)
[2021-05-25 04:58] VITALS: BP 108/70
[2021-05-25] MEDS: MORPHINE SULFATE INJECTION 2 MG/ML SYRG IV PRN ×4 (06:05→20:34)
[2021-05-25] MEDS: SODIUM CHLORIDE 0.9% 1,000 ML IV SCH ×3 (06:19→22:23)
[2021-05-25 06:57] LABS: Basophils # (auto) 0.2 10 ^3/uL (0-0.2); Basophils % (auto) 0.6 % (0.0-2.0); Eosinophils # (auto) 0 10 ^3/uL (0-0.8); Mean Corpuscular Volume 111.2 fL (80.0-100.0)
[2021-05-25 06:59] LABS: Eosinophils % (auto) 0.1 % (0.0-7.0); Hematocrit 28.6 % (36.0-46.0); Hemoglobin 9.5 g/dL (12.2-16.2); Lymphocytes # (auto) 1.9 10 ^3/uL (0.4-5.4); Lymphocytes % (auto) 7.2 % (10.0-50.0); Mean Corpuscular Hemoglobin 36.9 pg (28.0-32.0); Mean Corpuscular Hgb Conc. 33.2 g/dL (32.0-36.0); Monocytes # (auto) 1.9 10 ^3/uL (0-1.3); Monocytes % (auto) 7.1 % (0.0-12.0); Neutrophils # (auto) 22.3 10 ^3/uL (1.6-8.6); Red Blood Cells 2.57 10^6/uL (4.0-5.20); White Blood Cell 26.2 10^3/uL (4.4-10.8)
[2021-05-25 07:02] LABS: Red Cell Distribution Width 20.3 % (11.8-14.3)
[2021-05-25 07:10] LABS: Albumin 1.6 g/dL (3.4-5.0); BUN/Creatinine Ratio 3.4
[2021-05-25 07:13] LABS: Bilirubin, Total 11.5 mg/dL (0.2-1.0); Total Protein 5.6 g/dL (6.4-8.2)
[2021-05-25 07:26] LABS: Potassium 2.9 mmol/L (3.5-5.1)
[2021-05-25] MEDS ORDERED: POTASSIUM CHL 20 Meq TABLET PO ONE (07:45)
[2021-05-25] MEDS: POTASSIUM CHL 20MEQ/100ML 100 ML IV SCH ×2 (08:28→10:39)
[2021-05-25] MEDS ORDERED: LACTULOSE 20Gm/30ML SOLN PO ONE (09:15)
[2021-05-25 09:30] VITALS: BP 95/65
[2021-05-25] MEDS ORDERED: MAGNESIUM SULFATE 1GM/100ML 100 ML IV ONE (11:00)
[2021-05-25 13:00] VITALS: BP 105/78
[2021-05-25 17:00] VITALS: BP 103/72
[2021-05-25 22:00] VITALS: BP 95/63
[2021-05-25] MEDS: metroNIDAZOLE 500 MG TAB PO SCH (22:23)
[2021-05-26] MEDS: PIPERACILLIN-TAZOB 3.375GM 100 ML IV SCH ×5 (00:28→23:32)
[2021-05-26] MEDS: MORPHINE SULFATE INJECTION 2 MG/ML SYRG IV PRN ×5 (00:29→21:29)
[2021-05-26 05:00] VITALS: BP 119/46
[2021-05-26 05:57] LABS: Hematocrit 28.7 % (36.0-46.0); Hemoglobin 9.5 g/dL (12.2-16.2); Mean Corpuscular Hemoglobin 37.3 pg (28.0-32.0); Red Blood Cells 2.54 10^6/uL (4.0-5.20); White Blood Cell 25.7 10^3/uL (4.4-10.8)
[2021-05-26 06:01] LABS: INR 1.54 (0.9-1.15)
[2021-05-26 06:11] LABS: Basophils % (manual) 0 (0.0-2.0); Blast Cells 0; Eosinophils % (manual) 0 (0-7); Metamyelocytes % 0; Myelocytes % 0; Promyelocytes % 0; Reactive Lymphocytes 0; Red Cell Distribution Width 20.7 % (11.8-14.3)
[2021-05-26] MEDS: SODIUM CHLORIDE 0.9% 1,000 ML IV SCH ×2 (06:14→10:01)
[2021-05-26] MEDS: metroNIDAZOLE 500 MG TAB PO SCH ×2 (06:15→14:05)
[2021-05-26 07:03] LABS: Albumin 1.5 g/dL (3.4-5.0); BUN/Creatinine Ratio 2.2; Bilirubin, Total 11.2 mg/dL (0.2-1.0); Calcium 6.8 mg/dL (8.5-10.1); Potassium 3.3 mmol/L (3.5-5.1); Total Protein 5.6 g/dL (6.4-8.2)
[2021-05-26 08:06] LABS: Band Neutrophils % (manual) 5; Lymphocytes % (manual) 12 (10.0-50.0); Monocytes % (manual) 3 (0-12)
[2021-05-26 09:00] VITALS: BP 111/74
[2021-05-26 13:00] VITALS: BP 107/71
[2021-05-26] MEDS: VANCOMYCIN 750mg/250ml 250 ML IV SCH (15:48)
[2021-05-26] MEDS ORDERED: SPIRONOLACTONE 25 MG TAB PO ONE (16:45)
[2021-05-26 17:06] VITALS: BP 104/73
[2021-05-26] MEDS: LACTULOSE 20Gm/30ML SOLN PO SCH ×2 (17:07→21:28)
[2021-05-26] MEDS ORDERED: POTASSIUM CHL 20MEQ/100ML 100 ML IV ONE (17:30)
[2021-05-26] MEDS: ONDANSETRON HCL 4 MG/2 ML VIAL IV PRN (17:31)
[2021-05-26] MEDS ORDERED: LORazepam 2MG/ML-1ML VIAL IV PRN (17:45)
[2021-05-26] MEDS ORDERED: POTASSIUM CHLORIDE 20 MEQ, LIDOCAINE 1% (LOCAL ANESTH.) 2 ML in SODIUM CHL 0.9% 100 ML IV ONE (18:15)
[2021-05-26] MEDS: ALBUMIN 25% 100 ML IV SCH (21:28)
[2021-05-26] MEDS: methylPREDNISolone SOD SUCC 40 MG/ML VL IV SCH (21:28)
[2021-05-26 22:15] VITALS: BP 105/54
[2021-05-26 23:03] VITALS: BP 103/70
[2021-05-27] MEDS: MORPHINE SULFATE INJECTION 2 MG/ML SYRG IV PRN ×5 (01:39→21:24)
[2021-05-27] MEDS: PIPERACILLIN-TAZOB 3.375GM 100 ML IV SCH ×4 (05:08→23:50)
[2021-05-27] MEDS: LACTULOSE 20Gm/30ML SOLN PO SCH ×3 (05:08→21:24)
[2021-05-27] MEDS: ALBUMIN 25% 100 ML IV SCH ×2 (05:09→15:51)
[2021-05-27 05:12] VITALS: BP 109/75
[2021-05-27 06:05] LABS: Hemoglobin 8.5 g/dL (12.2-16.2)
[2021-05-27 06:14] LABS: Hematocrit 25.4 % (36.0-46.0); Mean Corpuscular Hemoglobin 37.8 pg (28.0-32.0); Mean Corpuscular Hgb Conc. 33.4 g/dL (32.0-36.0); Mean Corpuscular Volume 113.2 fL (80.0-100.0); Red Blood Cells 2.25 10^6/uL (4.0-5.20); White Blood Cell 25.4 10^3/uL (4.4-10.8)
[2021-05-27 06:17] LABS: Red Cell Distribution Width 20.4 % (11.8-14.3)
[2021-05-27 06:19] LABS: Basophils % (manual) 0 (0.0-2.0); Blast Cells 0; Eosinophils % (manual) 0 (0-7); Promyelocytes % 0; Reactive Lymphocytes 0
[2021-05-27 07:01] LABS: Albumin 2.2 g/dL (3.4-5.0); Calcium 6.9 mg/dL (8.5-10.1); Potassium 3.8 mmol/L (3.5-5.1)
[2021-05-27 07:04] LABS: BUN/Creatinine Ratio 2.1
[2021-05-27 07:20] LABS: Bilirubin, Total 10.4 mg/dL (0.2-1.0); Total Protein 5.8 g/dL (6.4-8.2)
[2021-05-27 07:25] LABS: Band Neutrophils % (manual) 4; Lymphocytes % (manual) 6 (10.0-50.0); Metamyelocytes % 1; Monocytes % (manual) 1 (0-12); Myelocytes % 1
[2021-05-27 08:10] VITALS: BP 105/70
[2021-05-27 09:00] VITALS: BP 105/70
[2021-05-27] MEDS: SPIRONOLACTONE 25 MG TAB PO SCH (09:19)
[2021-05-27] MEDS: ONDANSETRON HCL 4 MG/2 ML VIAL IV PRN (09:20)
[2021-05-27] MEDS: methylPREDNISolone SOD SUCC 40 MG/ML VL IV SCH ×2 (09:20→21:23)
[2021-05-27 09:45] LABS: INR 1.66 (0.9-1.15)
[2021-05-27 13:00] VITALS: BP 122/65
[2021-05-27] MEDS: VANCOMYCIN 750mg/250ml 250 ML IV SCH (17:00)
[2021-05-27 17:01] VITALS: BP 95/72
[2021-05-27] MEDS ORDERED: PHYTONADIONE(VitK) ORAL Susp 10mg/10ml(1mg/ml) PO ONE (17:30)
[2021-05-27 22:00] VITALS: BP 121/87
[2021-05-28] VITALS (7 sets, daily range): BP systolic 111–131; BP diastolic 65–98
[2021-05-28] MEDS: MORPHINE SULFATE INJECTION 2 MG/ML SYRG IV PRN ×4 (04:15→20:14)
[2021-05-28] MEDS: PIPERACILLIN-TAZOB 3.375GM 100 ML IV SCH ×4 (05:16→23:56)
[2021-05-28] MEDS: LACTULOSE 20Gm/30ML SOLN PO SCH ×3 (05:16→21:44)
[2021-05-28 05:47] LABS: Hemoglobin 9.6 g/dL (12.2-16.2)
[2021-05-28 05:56] LABS: Hematocrit 28.6 % (36.0-46.0); Mean Corpuscular Hemoglobin 37.9 pg (28.0-32.0); Mean Corpuscular Hgb Conc. 33.5 g/dL (32.0-36.0); Mean Corpuscular Volume 113.3 fL (80.0-100.0); Red Blood Cells 2.53 10^6/uL (4.0-5.20); White Blood Cell 23.4 10^3/uL (4.4-10.8)
[2021-05-28 06:18] LABS: Calcium 7.4 mg/dL (8.5-10.1); Potassium 4.1 mmol/L (3.5-5.1)
[2021-05-28 06:23] LABS: Albumin 2.2 g/dL (3.4-5.0); BUN/Creatinine Ratio 3.1; Bilirubin, Total 10.5 mg/dL (0.2-1.0); Total Protein 5.9 g/dL (6.4-8.2)
[2021-05-28 07:01] LABS: Red Cell Distribution Width 20.4 % (11.8-14.3)
[2021-05-28 07:02] LABS: Basophils % (manual) 0 (0.0-2.0); Blast Cells 0; Eosinophils % (manual) 0 (0-7); Myelocytes % 0; Promyelocytes % 0; Reactive Lymphocytes 0
[2021-05-28 08:44] LABS: Band Neutrophils % (manual) 2; Lymphocytes % (manual) 8 (10.0-50.0); Metamyelocytes % 1; Monocytes % (manual) 3 (0-12)
[2021-05-28] MEDS: SPIRONOLACTONE 25 MG TAB PO SCH (09:39)
[2021-05-28] MEDS: FOLIC ACID 1 MG TAB PO SCH (09:39)
[2021-05-28] MEDS: methylPREDNISolone SOD SUCC 40 MG/ML VL IV SCH ×2 (09:40→21:44)
[2021-05-28] MEDS: THIAMINE HCL 100 MG TAB PO SCH (09:40)
[2021-05-28] MEDS ORDERED: IOHEXOL 300 MG/ML 100ML BOTTLE IJ ONE (11:46)
[2021-05-28] MEDS: PHYTONADIONE(VitK) ORAL Susp 10mg/10ml(1mg/ml) PO SCH (17:50)
[2021-05-28] MEDS: HYDROcodone-ACET 5/325MG TAB PO PRN (21:46)
[2021-05-29] MEDS: MORPHINE SULFATE INJECTION 2 MG/ML SYRG IV PRN ×6 (01:00→23:45)
[2021-05-29] MEDS: FUROSEMIDE 20 MG/2 ML VIAL IV SCH ×2 (03:15→10:07)
[2021-05-29] MEDS ORDERED: LORazepam 2MG/ML-1ML VIAL IV ONE (03:15)
[2021-05-29 05:00] VITALS: BP 115/81
[2021-05-29] MEDS: PIPERACILLIN-TAZOB 3.375GM 100 ML IV SCH ×3 (05:58→17:23)
[2021-05-29] MEDS: LACTULOSE 20Gm/30ML SOLN PO SCH ×3 (05:58→21:21)
[2021-05-29 07:06] LABS: RPR Non Reactive (Non Reactive)
[2021-05-29 07:45] VITALS: BP 141/101
[2021-05-29 09:00] VITALS: BP 141/101
[2021-05-29] MEDS: SPIRONOLACTONE 25 MG TAB PO SCH (10:07)
[2021-05-29] MEDS: methylPREDNISolone SOD SUCC 40 MG/ML VL IV SCH ×2 (10:07→21:21)
[2021-05-29] MEDS: FOLIC ACID 1 MG TAB PO SCH (10:07)
[2021-05-29] MEDS: THIAMINE HCL 100 MG TAB PO SCH (10:08)
[2021-05-29] MEDS: PHYTONADIONE(VitK) ORAL Susp 10mg/10ml(1mg/ml) PO SCH (11:45)
[2021-05-29 13:00] VITALS: BP 131/84
[2021-05-29 14:24] LABS: Hepatitis A Ab IgM Negative; Hepatitis B Core IgM Negative; Hepatitis B Surface Antigen Negative (Negative); Hepatitis C Antibody Negative (Negative)
[2021-05-29 17:12] VITALS: BP 131/89
[2021-05-29 19:00] LABS: Hematocrit 26.2 % (36.0-46.0)
[2021-05-29 19:02] LABS: Hemoglobin 8.5 g/dL (12.2-16.2); Mean Corpuscular Hemoglobin 36.1 pg (28.0-32.0); Mean Corpuscular Hgb Conc. 32.5 g/dL (32.0-36.0); Mean Corpuscular Volume 111.2 fL (80.0-100.0); Red Blood Cells 2.36 10^6/uL (4.0-5.20)
[2021-05-29 19:03] LABS: Red Cell Distribution Width 20.2 % (11.8-14.3)
[2021-05-29 19:05] LABS: Basophils % (manual) 0 (0.0-2.0); Blast Cells 0; Eosinophils % (manual) 0 (0-7); Promyelocytes % 0; Reactive Lymphocytes 0
[2021-05-29 19:25] LABS: BUN/Creatinine Ratio 6.4; Calcium 7.7 mg/dL (8.5-10.1); Potassium 3.5 mmol/L (3.5-5.1)
[2021-05-29 19:43] LABS: Band Neutrophils % (manual) 2; Lymphocytes % (manual) 4 (10.0-50.0); Metamyelocytes % 1; Monocytes % (manual) 3 (0-12); Myelocytes % 1
[2021-05-29] MEDS: HYDROcodone-ACET 5/325MG TAB PO PRN (21:22)
[2021-05-29 22:00] VITALS: BP 136/99
[2021-05-30] MEDS: MORPHINE SULFATE INJECTION 2 MG/ML SYRG IV PRN ×3 (04:14→18:42)
[2021-05-30 05:30] VITALS: BP 122/98
[2021-05-30] MEDS: LACTULOSE 20Gm/30ML SOLN PO SCH ×2 (05:53→13:33)
[2021-05-30] MEDS: HYDROcodone-ACET 5/325MG TAB PO PRN ×3 (05:54→21:58)
[2021-05-30 07:13] LABS: BUN/Creatinine Ratio 9.6; Calcium 7.7 mg/dL (8.5-10.1); Potassium 3.5 mmol/L (3.5-5.1)
[2021-05-30 07:17] LABS: Hematocrit 25.3 % (36.0-46.0); Hemoglobin 8.6 g/dL (12.2-16.2); Mean Corpuscular Hgb Conc. 33.9 g/dL (32.0-36.0); Red Blood Cells 2.28 10^6/uL (4.0-5.20)
[2021-05-30 07:21] LABS: Mean Corpuscular Hemoglobin 37.6 pg (28.0-32.0); Red Cell Distribution Width 19.9 % (11.8-14.3); White Blood Cell 28.7 10^3/uL (4.4-10.8)
[2021-05-30 07:34] LABS: Band Neutrophils % (manual) 0; Basophils % (manual) 0 (0.0-2.0); Blast Cells 0; Eosinophils % (manual) 0 (0-7); Metamyelocytes % 0; Myelocytes % 0; Promyelocytes % 0; Reactive Lymphocytes 0
[2021-05-30 09:19] VITALS: BP 131/96
[2021-05-30] MEDS: FUROSEMIDE 20 MG/2 ML VIAL IV SCH (09:32)
[2021-05-30] MEDS: FOLIC ACID 1 MG TAB PO SCH (09:32)
[2021-05-30] MEDS: methylPREDNISolone SOD SUCC 40 MG/ML VL IV SCH (09:32)
[2021-05-30] MEDS: SPIRONOLACTONE 25 MG TAB PO SCH (09:32)
[2021-05-30] MEDS: THIAMINE HCL 100 MG TAB PO SCH (09:32)
[2021-05-30 10:25] LABS: Lymphocytes % (manual) 26 (10.0-50.0); Monocytes % (manual) 5 (0-12)
[2021-05-30 13:00] VITALS: BP 122/82
[2021-05-30 17:01] VITALS: BP 139/101
[2021-05-30] MEDS ORDERED: THIA50CA PO (18:30)
[2021-05-30] MEDS ORDERED: METH4PAK PO (18:30)
[2021-05-30] MEDS ORDERED: FOLI1TAB6 PO (18:30)
[2021-05-30] MEDS ORDERED: FURO1TAB31 PO (18:30)
[2021-05-30] MEDS ORDERED: SPIR25TA PO (18:30)
[2021-05-30] MEDS ORDERED: LACT10SO3 PO (18:32)
[2021-05-30 19:49] VITALS: BP 131/96
== END 2021-05-30 23:02 | disposition home health service (06) | DRG 720 ==
LOC: ER 00:31 → TELE 13:38 → TELE-CENTR 16:10
PROVIDERS: ADMIT Internal Medicine; ATTEND Internal Medicine
DX: A41.9 Sepsis, unspecified organism (principal); E43 Unspecified severe protein-calorie malnutrition; K70.31 Alcoholic cirrhosis of liver with ascites; K65.2 Spontaneous bacterial peritonitis; K72.90 Hepatic failure, unspecified without coma; D63.8 Anemia in other chronic diseases classified elsewhere; K70.11 Alcoholic hepatitis with ascites; E87.6 Hypokalemia; F10.20 Alcohol dependence, uncomplicated; K52.9 Noninfective gastroenteritis and colitis, unspecified; N39.0 Urinary tract infection, site not specified; K75.81 Nonalcoholic steatohepatitis (NASH); F43.10 Post-traumatic stress disorder, unspecified; F10.239 Alcohol dependence with withdrawal, unspecified; Y90.0 Blood alcohol level of less than 20 mg/100 ml; Z20.822 Contact with and (suspected) exposure to COVID-19; F41.9 Anxiety disorder, unspecified; F32.9 Major depressive disorder, single episode, unspecified; R53.81 Other malaise; Z79.899 Other long term (current) drug therapy; Z98.82 Breast implant status; Z68.23 Body mass index [BMI] 23.0-23.9, adult
CPT/HCPCS: 36415; 71045; 72170; 74022; 74176; 74177; 74181; 76700; 80048; 80053; 80074; 80202; 80307; 80320; 81001; 82140; 82150; 83605; 83690; 83735; 84132; 84702; 85007; 85025; 85027; 85048; 85610; 85730; 86592; 86703; 87040; 87045; 87081; 87086; 87426; 87427; 93005; 96365; 96367; 96375; 97163; G0378; J2001; J2405; J2543; J3480; J3490; P9047

== ENCOUNTER 2023-05-31 09:18 | Emergency (ER) | payer MEDICAID ==
[~2023-05-31] VITALS: Ht 160 cm; Wt 57.2 kg
[~2023-05-31 09:18] MED LIST changes: -AMOX500T86 PO; +DOCU-265 PO; +FOLI-119 PO; +FURO1TAB31 PO; -GABA300C10 PO; +LACT10SO3 PO; -LACT10SO70 PO; +METH4PAK PO; +PANT40T PO; +PRED20TA2 PO; +SPIR25TA PO; +SPIR50TA5 PO; +THIA50CA PO
[2023-05-31] MEDS ORDERED: IBUPROFEN 600 MG TAB PO ONE (09:45)
[2023-05-31 10:30] VITALS: TEMP 97.9; O2SAT 95
[2023-05-31] MEDS ORDERED: MORPHINE SULFATE INJ 2 MG/ml SYRG IM ONE (11:30)
[2023-05-31 11:37] VITALS: BP 133/73; PULSE 98; RESP 18
== END 2023-05-31 12:24 | disposition home or self-care (01) ==
LOC: ER 09:18
DX: S42.291A Other displaced fracture of upper end of right humerus, initial encounter for closed fracture (principal); F10.90 Alcohol use, unspecified, uncomplicated; Z98.890 Other specified postprocedural states; Z79.899 Other long term (current) drug therapy; W01.0XXA Fall on same level from slipping, tripping and stumbling without subsequent striking against object, initial encounter; Y93.89 Activity, other specified; Y92.89 Other specified places as the place of occurrence of the external cause; Y99.8 Other external cause status; Y90.0 Blood alcohol level of less than 20 mg/100 ml
CPT/HCPCS: 73030; 73080; 96372; 99284; J2270

== ENCOUNTER 2023-06-01 01:34 | Emergency (ER) | payer MEDICAID ==
[~2023-06-01] VITALS: Ht 162.6 cm; Wt 72.5 kg
[2023-06-01 01:40] VITALS: TEMP 97.9
[2023-06-01] MEDS ORDERED: ONDANSETRON ODT 4 MG TAB PO ONE (03:45)
[2023-06-01] MEDS ORDERED: MORPHINE SULFATE INJ 2 MG/ml SYRG IM ONE (03:45)
[2023-06-01 03:52] VITALS: O2SAT 99
[2023-06-01 04:45] VITALS: BP 101/66; PULSE 105; RESP 16
== END 2023-06-01 06:22 | disposition home or self-care (01) ==
LOC: EDBD 01:34 → ER 01:37
DX: S42.291A Other displaced fracture of upper end of right humerus, initial encounter for closed fracture (principal); S42.211A Unspecified displaced fracture of surgical neck of right humerus, initial encounter for closed fracture; K74.69 Other cirrhosis of liver; Z98.890 Other specified postprocedural states; Z79.899 Other long term (current) drug therapy; W01.0XXA Fall on same level from slipping, tripping and stumbling without subsequent striking against object, initial encounter; Y93.89 Activity, other specified; Y92.89 Other specified places as the place of occurrence of the external cause; Y99.8 Other external cause status
CPT/HCPCS: 96372; 99283; J2270; Q0162